=== PATIENT | male | born 1950 | race African-American/Black ===

== ENCOUNTER 2019-08-15 18:53 | Emergency (ER) | payer OTHER ==
[~2019-08-15] VITALS: Ht 172.7 cm; Wt 69.0 kg
[2019-08-15] MEDS ORDERED: ACETAMINOPHEN WITH CODEINE 300/30MG TABLET PO ONE (20:00)
[2019-08-15 22:15] VITALS: BP 113/70
== END 2019-08-15 22:15 | disposition home or self-care (01) ==
LOC: ER 18:53
DX: S09.8XXA Other specified injuries of head, initial encounter (principal); S02.2XXA Fracture of nasal bones, initial encounter for closed fracture; H11.30 Conjunctival hemorrhage, unspecified eye; Y04.2XXA Assault by strike against or bumped into by another person, initial encounter; Y93.89 Activity, other specified; Y92.89 Other specified places as the place of occurrence of the external cause
CPT/HCPCS: 70486; 99284

== ENCOUNTER 2021-04-27 17:50 | Inpatient (IN) | payer MEDICAID, OTHER ==
[~2021-04-27] VITALS: Ht 172.7 cm; Wt 69.4 kg
[2021-04-27] MEDS ORDERED: LEVETIRACETAM 500MG PREMIX 100 ML IV ONE (18:30)
[2021-04-27] MEDS ORDERED: SODIUM CHLORIDE 0.9% 1,000 ML IV ONE ×2 (18:45→20:15)
[2021-04-27 19:03] LABS: CLARITY URINE CLEAR (CLEAR); COLOR URINE YELLOW (YELLOW); KETONES URINE TRACE (NEGATIVE); LEUKOCYTE ESTERASE URINE NEGATIVE (NEGATIVE); NITRITE URINE NEGATIVE (NEGATIVE); OCCULT BLOOD URINE NEGATIVE (NEGATIVE); PROTEIN URINE NEGATIVE (NEGATIVE); SPECIFIC GRAVITY URINE 1.037 (1.005-1.030); UROBILINOGEN URINE 0.2 E.U./dL (0.2-1.0)
[2021-04-27 19:14] LABS: EOSINOPHILS % 1.5 % (0.0-5.0); HEMATOCRIT. 43.2 % (42.0-52.0); HEMOGLOBIN. 14.3 g/dL (14.0-18.0); LYMPHOCYTES % 34.9 % (20.0-50.0); MEAN CORPUSCULAR HEMOGLOBIN 28.7 pg (28.0-32.0); MEAN CORPUSCULAR VOLUME 86.7 fL (80.0-94.0); MEAN PLATELET VOLUME 9.3 fl (7.4-10.4); MONOCYTES % 9.1 % (2.0-8.0); NEUTROPHILS % 53.5 % (40.0-76.0); PLATELET 120 x1000/uL (130-400); RED BLOOD CELL COUNT 4.98 mill/uL (4.7-6.1); RED CELL DISTRIBUTION WIDTH 14.4 % (11.6-14.6)
[2021-04-27 19:16] LABS: *AMPHETAMINES SCREEN URINE NEGATIVE (NEGATIVE); *BARBITURATES SCREEN URINE NEGATIVE (NEGATIVE); *BENZODIAZEPINES SCREEN URINE NEGATIVE (NEGATIVE); *COCAINE SCREEN URINE NEGATIVE (NEGATIVE)
[2021-04-27 19:17] LABS: CANNABINOID URINE SCREEN NEGATIVE (NEGATIVE); METHADONE URINE SCREEN NEGATIVE (NEGATIVE); OPIATES URINE SCREEN NEGATIVE (NEGATIVE); PHENCYCLIDINE URINE SCREEN NEGATIVE (NEGATIVE)
[2021-04-27 19:19] LABS: CHLORIDE 102 mEq/L (98-107)
[2021-04-27 19:24] LABS: ETHANOL BLOOD < 10 mg/dL
[2021-04-27 19:26] LABS: PROTHROMBIN TIME 10.9 sec (9.6-11.0)
[2021-04-27] MEDS ORDERED: INSULIN REGULAR (HUMULIN R) 300UNITS/3ML VIAL SUBCUT ONE (20:15)
[2021-04-27 22:55] VITALS: BP 158/87
[2021-04-28] VITALS: BP 116/76
[2021-04-28] MEDS ORDERED: DEXTROSE 50% WATER 50ML SYRINGE IV PRN (01:45)
[2021-04-28 04:00] VITALS: BP 123/69
[2021-04-28] MEDS: BLOOD SUGAR DIAGNOSTIC STRIP TEST SCH ×4 (06:33→21:50)
[2021-04-28] MEDS: INSULIN LISPRO 100 UNITS/ML SUBCUT SCH ×4 (06:35→21:49)
[2021-04-28 08:00] VITALS: BP 138/92
[2021-04-28 09:16] LABS: BASOPHILS % 0.5 % (0.0-2.0); EOSINOPHILS % 1.8 % (0.0-5.0); HEMATOCRIT. 43.8 % (42.0-52.0); HEMOGLOBIN. 14.6 g/dL (14.0-18.0); LYMPHOCYTES % 34.1 % (20.0-50.0); MEAN CORPUSCULAR HEMOGLOBIN 28.5 pg (28.0-32.0); MEAN CORPUSCULAR VOLUME 85.6 fL (80.0-94.0); MEAN PLATELET VOLUME 9.1 fl (7.4-10.4); MONOCYTES % 6.3 % (2.0-8.0); NEUTROPHILS % 57.3 % (40.0-76.0); PLATELET 121 x1000/uL (130-400); RED BLOOD CELL COUNT 5.12 mill/uL (4.7-6.1); RED CELL DISTRIBUTION WIDTH 14.5 % (11.6-14.6)
[2021-04-28 09:23] LABS: CHLORIDE 107 mEq/L (98-107)
[2021-04-28 09:32] LABS: HDL CHOLESTEROL 61 mg/dL (40-59)
[2021-04-28 09:37] LABS: LDL CHOLESTEROL 49 mg/dL (5-100)
[2021-04-28] MEDS: LEVETIRACETAM 500MG/5ML CUP PO SCH ×2 (09:55→21:42)
[2021-04-28] MEDS: LISINOPRIL 20MG TABLET PO SCH (09:56)
[2021-04-28] MEDS ORDERED: INSULIN GLARGINE UD 100 UNITS/ML SYR SUBCUT SCH ×2 (10:00→22:00)
[2021-04-28 12:00] VITALS: BP 109/67
[2021-04-28] MEDS ORDERED: METF-873 PO (13:11)
[2021-04-28] MEDS ORDERED: LISI20TA31 MT (13:11)
[2021-04-28 16:00] VITALS: BP 130/78
[2021-04-28 20:00] VITALS: BP 116/66
[2021-04-28] MEDS ORDERED: LORAZEPAM 2MG/ML CPJ IV PRN (22:15)
[2021-04-28] MEDS: LORAZEPAM 2MG/ML CPJ IV PRN (22:17)
[2021-04-29] VITALS: BP 106/53
[2021-04-29 04:00] VITALS: BP 145/87
[2021-04-29] MEDS: BLOOD SUGAR DIAGNOSTIC STRIP TEST SCH ×4 (06:55→21:16)
[2021-04-29 08:00] VITALS: BP 124/89
[2021-04-29] MEDS: LEVETIRACETAM 500MG/5ML CUP PO SCH ×2 (08:38→21:16)
[2021-04-29] MEDS: LISINOPRIL 20MG TABLET PO SCH (08:45)
[2021-04-29] MEDS: INSULIN LISPRO 100 UNITS/ML SUBCUT SCH ×4 (08:46→21:21)
[2021-04-29 12:00] VITALS: BP 163/86
[2021-04-29] MEDS: LORAZEPAM 2MG/ML CPJ IV PRN (14:44)
[2021-04-29] MEDS: DONEPEZIL HCL 5MG TABLET PO SCH (14:44)
[2021-04-29] MEDS ORDERED: LORAZEPAM 2MG/ML CPJ IV PRN (15:45)
[2021-04-29 16:00] VITALS: BP 137/76
[2021-04-29 18:50] LABS: VITAMIN B12 SERUM > 2000.0 pg/mL (211-911)
[2021-04-29 20:00] VITALS: BP 122/82
[2021-04-29] MEDS: RISPERIDONE 1MG TABLET PO SCH (21:16)
[2021-04-29] MEDS ORDERED: INSULIN GLARGINE UD 100 UNITS/ML SYR SUBCUT SCH (22:00)
[2021-04-30] VITALS: BP 96/58
[2021-04-30 04:00] VITALS: BP 102/68
[2021-04-30] MEDS: BLOOD SUGAR DIAGNOSTIC STRIP TEST SCH ×4 (06:20→21:00)
[2021-04-30 08:00] VITALS: BP 128/79
[2021-04-30] MEDS: INSULIN LISPRO 100 UNITS/ML SUBCUT SCH ×4 (09:22→21:00)
[2021-04-30] MEDS: LISINOPRIL 20MG TABLET PO SCH (09:23)
[2021-04-30] MEDS: DONEPEZIL HCL 5MG TABLET PO SCH (09:23)
[2021-04-30] MEDS: RISPERIDONE 1MG TABLET PO SCH ×2 (09:23→21:00)
[2021-04-30] MEDS: LEVETIRACETAM 500MG/5ML CUP PO SCH ×2 (09:25→21:00)
[2021-04-30] MEDS: INSULIN GLARGINE UD 100 UNITS/ML SYR SUBCUT SCH ×2 (11:51→22:00)
[2021-04-30 12:00] VITALS: BP 107/62
[2021-04-30 16:00] VITALS: BP 128/87
[2021-04-30 20:00] VITALS: BP 130/82
[2021-05-01] VITALS: BP 94/54
[2021-05-01 04:00] VITALS: BP 130/82
[2021-05-01] MEDS: BLOOD SUGAR DIAGNOSTIC STRIP TEST SCH ×4 (06:57→20:41)
[2021-05-01] MEDS: INSULIN LISPRO 100 UNITS/ML SUBCUT SCH ×4 (07:25→21:46)
[2021-05-01 08:11] VITALS: BP 103/75
[2021-05-01] MEDS: LISINOPRIL 20MG TABLET PO SCH (08:41)
[2021-05-01] MEDS: LEVETIRACETAM 500MG/5ML CUP PO SCH ×2 (08:42→21:45)
[2021-05-01] MEDS: RISPERIDONE 1MG TABLET PO SCH ×2 (08:42→21:45)
[2021-05-01] MEDS: DONEPEZIL HCL 5MG TABLET PO SCH (08:42)
[2021-05-01 12:04] VITALS: BP 100/59
[2021-05-01] MEDS: INSULIN GLARGINE UD 100 UNITS/ML SYR SUBCUT SCH ×2 (12:09→21:46)
[2021-05-01 15:45] VITALS: BP 96/54
[2021-05-01 20:00] VITALS: BP 91/62
[2021-05-02] VITALS (7 sets, daily range): BP systolic 85–143; BP diastolic 64–78
[2021-05-02] MEDS: BLOOD SUGAR DIAGNOSTIC STRIP TEST SCH ×4 (07:20→20:17)
[2021-05-02] MEDS: INSULIN LISPRO 100 UNITS/ML SUBCUT SCH ×4 (07:33→20:18)
[2021-05-02] MEDS: DONEPEZIL HCL 5MG TABLET PO SCH (08:23)
[2021-05-02] MEDS: RISPERIDONE 1MG TABLET PO SCH ×2 (08:23→20:17)
[2021-05-02] MEDS: LEVETIRACETAM 500MG/5ML CUP PO SCH ×2 (08:23→20:17)
[2021-05-02] MEDS: LISINOPRIL 20MG TABLET PO SCH (08:37)
[2021-05-02] MEDS: INSULIN GLARGINE UD 100 UNITS/ML SYR SUBCUT SCH ×2 (09:45→22:00)
[2021-05-03] VITALS (7 sets, daily range): BP systolic 93–142; BP diastolic 61–86
[2021-05-03] MEDS: BLOOD SUGAR DIAGNOSTIC STRIP TEST SCH ×4 (06:32→21:30)
[2021-05-03] MEDS: INSULIN LISPRO 100 UNITS/ML SUBCUT SCH ×4 (07:50→21:38)
[2021-05-03] MEDS: LISINOPRIL 20MG TABLET PO SCH (09:00)
[2021-05-03] MEDS: LEVETIRACETAM 500MG/5ML CUP PO SCH ×2 (09:15→21:32)
[2021-05-03] MEDS: DONEPEZIL HCL 5MG TABLET PO SCH (09:15)
[2021-05-03] MEDS: RISPERIDONE 1MG TABLET PO SCH ×2 (09:16→21:33)
[2021-05-03] MEDS: INSULIN GLARGINE UD 100 UNITS/ML SYR SUBCUT SCH ×2 (10:47→22:00)
[2021-05-04] VITALS (7 sets, daily range): BP systolic 116–149; BP diastolic 55–90
[2021-05-04] MEDS: BLOOD SUGAR DIAGNOSTIC STRIP TEST SCH ×4 (06:25→21:00)
[2021-05-04] MEDS: INSULIN LISPRO 100 UNITS/ML SUBCUT SCH ×4 (07:50→22:08)
[2021-05-04] MEDS: DONEPEZIL HCL 5MG TABLET PO SCH (08:42)
[2021-05-04] MEDS: LEVETIRACETAM 500MG/5ML CUP PO SCH ×2 (08:42→22:07)
[2021-05-04] MEDS: RISPERIDONE 1MG TABLET PO SCH ×2 (08:42→22:07)
[2021-05-04] MEDS: LISINOPRIL 20MG TABLET PO SCH (08:42)
[2021-05-04] MEDS: INSULIN GLARGINE UD 100 UNITS/ML SYR SUBCUT SCH ×2 (10:24→22:08)
[2021-05-05] VITALS: BP 113/76
[2021-05-05 04:00] VITALS: BP 126/77
[2021-05-05] MEDS: BLOOD SUGAR DIAGNOSTIC STRIP TEST SCH ×4 (07:34→21:36)
[2021-05-05] MEDS: INSULIN LISPRO 100 UNITS/ML SUBCUT SCH ×4 (07:50→21:45)
[2021-05-05 08:00] VITALS: BP 131/79
[2021-05-05] MEDS: RISPERIDONE 1MG TABLET PO SCH ×2 (08:25→21:36)
[2021-05-05] MEDS: LISINOPRIL 20MG TABLET PO SCH (08:26)
[2021-05-05] MEDS: DONEPEZIL HCL 5MG TABLET PO SCH (08:26)
[2021-05-05] MEDS: LEVETIRACETAM 500MG/5ML CUP PO SCH ×2 (08:26→21:36)
[2021-05-05] MEDS: ACETAMINOPHEN 325MG TABLET PO PRN (08:27)
[2021-05-05] MEDS: INSULIN GLARGINE UD 100 UNITS/ML SYR SUBCUT SCH ×2 (10:00→21:46)
[2021-05-05 12:00] VITALS: BP 133/88
[2021-05-05] MEDS ORDERED: LACTULOSE 20G/30ML UDC PO NR (13:00)
[2021-05-05 16:00] VITALS: BP 112/70
[2021-05-05 20:00] VITALS: BP 124/88
[2021-05-06] VITALS: BP 134/87
[2021-05-06 04:00] VITALS: BP 109/68
[2021-05-06] MEDS: BLOOD SUGAR DIAGNOSTIC STRIP TEST SCH ×4 (07:42→21:41)
[2021-05-06 07:48] VITALS: BP 132/80
[2021-05-06] MEDS: INSULIN LISPRO 100 UNITS/ML SUBCUT SCH ×4 (07:50→21:40)
[2021-05-06 12:00] VITALS: BP 108/69
[2021-05-06] MEDS: DONEPEZIL HCL 5MG TABLET PO SCH (12:17)
[2021-05-06] MEDS: LEVETIRACETAM 500MG/5ML CUP PO SCH ×2 (12:18→21:41)
[2021-05-06] MEDS: RISPERIDONE 1MG TABLET PO SCH ×2 (12:18→21:41)
[2021-05-06] MEDS: LISINOPRIL 20MG TABLET PO SCH (12:19)
[2021-05-06] MEDS: ACETAMINOPHEN 325MG TABLET PO PRN (12:23)
[2021-05-06] MEDS: INSULIN GLARGINE UD 100 UNITS/ML SYR SUBCUT SCH ×2 (12:23→21:40)
[2021-05-06 16:00] VITALS: BP 146/89
[2021-05-06 20:00] VITALS: BP 105/69
[2021-05-07] VITALS: BP 115/74
[2021-05-07 04:00] VITALS: BP 119/66
[2021-05-07] MEDS: BLOOD SUGAR DIAGNOSTIC STRIP TEST SCH ×4 (06:29→21:48)
[2021-05-07] MEDS: ACETAMINOPHEN 325MG TABLET PO PRN (06:29)
[2021-05-07] MEDS: INSULIN LISPRO 100 UNITS/ML SUBCUT SCH ×4 (07:50→21:49)
[2021-05-07 08:00] VITALS: BP 145/92
[2021-05-07] MEDS: DONEPEZIL HCL 5MG TABLET PO SCH (08:52)
[2021-05-07] MEDS: RISPERIDONE 1MG TABLET PO SCH ×2 (08:52→21:50)
[2021-05-07] MEDS: LISINOPRIL 20MG TABLET PO SCH (08:53)
[2021-05-07] MEDS: LEVETIRACETAM 500MG/5ML CUP PO SCH ×2 (08:53→21:50)
[2021-05-07 11:52] VITALS: BP 123/76
[2021-05-07] MEDS: INSULIN GLARGINE UD 100 UNITS/ML SYR SUBCUT SCH ×2 (12:48→21:49)
[2021-05-07 16:00] VITALS: BP 152/87
[2021-05-07 21:10] VITALS: BP 155/74
[2021-05-08] MEDS: BLOOD SUGAR DIAGNOSTIC STRIP TEST SCH ×3 (07:44→17:25)
[2021-05-08] MEDS: INSULIN LISPRO 100 UNITS/ML SUBCUT SCH ×3 (07:50→17:25)
[2021-05-08 08:00] VITALS: BP 141/32
[2021-05-08] MEDS: LISINOPRIL 20MG TABLET PO SCH (08:59)
[2021-05-08] MEDS: RISPERIDONE 1MG TABLET PO SCH (08:59)
[2021-05-08] MEDS: INSULIN GLARGINE UD 100 UNITS/ML SYR SUBCUT SCH (09:00)
[2021-05-08] MEDS: LEVETIRACETAM 500MG/5ML CUP PO SCH (09:00)
[2021-05-08] MEDS: DONEPEZIL HCL 5MG TABLET PO SCH (09:00)
[2021-05-08 12:00] VITALS: BP 140/116
[2021-05-08 16:00] VITALS: BP 150/91
== END 2021-05-08 17:30 | DRG 53 ==
LOC: ER 17:50 → 6WST 20:09 → EDBEDREQ 20:13 → EDBEDREQTM 20:13 → ENRESERV 20:48 → 6EST 05-02 10:31
PROVIDERS: ADMIT Internal Medicine; ATTEND Internal Medicine
DX: G40.109 Localization-related (focal) (partial) symptomatic epilepsy and epileptic syndromes with simple partial seizures, not intractable, without status epilepticus (principal); N17.0 Acute kidney failure with tubular necrosis; E11.65 Type 2 diabetes mellitus with hyperglycemia; Z20.822 Contact with and (suspected) exposure to COVID-19; I10 Essential (primary) hypertension; R62.7 Adult failure to thrive; Z79.4 Long term (current) use of insulin; Z79.899 Other long term (current) drug therapy; Z68.23 Body mass index [BMI] 23.0-23.9, adult; G30.9 Alzheimer's disease, unspecified; F02.81 Dementia in other diseases classified elsewhere, unspecified severity, with behavioral disturbance
CPT/HCPCS: 36415; 70551; 71045; 80053; 80061; 80305; 80320; 81003; 82010; 82140; 82607; 82962; 83036; 83605; 83880; 84443; 84484; 85025; 86850; 86900; 87426; 93005; 97110; 97116; 97162; 97530; 99285; C1893; J1815; J1953; J2060; J7030; J7042; G0480